=== PATIENT | female | born 1955 | race American Indian/Alaskan Native ===

== ENCOUNTER 2019-05-03 10:36 | Outpatient (CLI) | payer OTHER ==
--- NOTE | 2019-05-03 15:53 | Mammography Report ---
DIGITAL SCREENING MAMMOGRAM WITH CAD, 05/03/2019 INDICATION: Routine screening mammography. TECHNIQUE: Digital bilateral 2D mammography was obtained in the craniocaudal and mediolateral obliq ue projections. This examination was interpreted with the benefit of Computer-Aided Detection analysi s. COMPARISON: None available at the time of dictation. FINDINGS: Breast Density: The breasts are heterogeneously dense, which may obscure small masses. A school bus monitor device is present in the upper inner quadrant of the left breast. There is a cluster of calcifications in the right breast at 12:00. There is left subareolar nodularit y. Although these findings are more than likely benign, comparison with outside prior mammogram would be helpful in determining whether further evaluation is warranted. We will be requesting prior mammo grams and will issue an addendum once outside mammograms have been obtained and reviewed. IMPRESSION: Right breast calcifications and left breast nodularity are present. Findings will more th an likely be benign but will need comparison with outside prior mammograms. An addendum will be issue d once outside mammograms have been obtained and reviewed. BI-RADS Category 0: Incomplete. Needs additional imaging evaluation and/or prior mammograms for miguel angel rison. A "normal" or negative report should not discourage follow up or biopsy of a clinically significant f inding. A written summary of these findings will be mailed to the patient. The patient will be entered into a mammography reporting system which will generate a reminder letter for the patient's next appointmen t at the appropriate interval. The [employer] recommends yearly mammograms starting at age 40 and continuing as l [place] as a woman is in good health. Breast MRI is recommended for women with an approximate 20-25% or greater lifetime risk of breast cancer, including women with a strong family history of breast or ova jamshid cancer or who have been treated for Hodgkin's disease. Signer Name: Malinda Villatoro MD Signed: 05/03/2019 3:48 PM Workstation Name: [id number]
== END 2019-05-03 10:37 | disposition home or self-care (01) ==
LOC: SPVWC 10:36
PROVIDERS: ATTEND Family Medicine
DX: Z12.31 Encounter for screening mammogram for malignant neoplasm of breast (principal)
CPT/HCPCS: 77067

== ENCOUNTER 2020-05-23 14:04 | Outpatient (CLI) | payer OTHER ==
--- NOTE | 2020-05-24 08:57 | Mammography Report ---
DIGITAL SCREENING MAMMOGRAM WITH CAD, 05/23/2020 INDICATION: Routine screening mammography. SCREENING MAMMOGRAM TECHNIQUE: Digital bilateral 2D mammography was obtained in the craniocaudal and mediolateral obliq ue projections. This examination was interpreted with the benefit of Computer-Aided Detection analysi s. COMPARISON: 05/03/2019 FINDINGS: Breast Density: There are scattered areas of fibroglandular density. There is no evidence of dominant mass, suspicious calcifications or architectural distortion in eithe r breast. Leadless subcutaneous cardiac device again noted on the left. A few scattered calcification s are largely unchanged. IMPRESSION: Follow up recommendation: Routine yearly BI-RADS Category 2: Benign. A "normal" or negative report should not discourage follow up or biopsy of a clinically significant f inding. A written summary of these findings will be mailed to the patient. The patient will be entered into a mammography reporting system which will generate a reminder letter for the patient's next appointmen t at the appropriate interval. The [employer] recommends yearly mammograms starting at age 40 and continuing as l bal[place] as a woman is in good health. Breast MRI is recommended for women with an approximate 20-25% or greater lifetime risk of breast cancer, including women with a strong family history of breast or ova jamshid cancer or who have been treated for Hodgkin's disease. Signer Name: Gm Hartmann MD Signed: 05/24/2020 8:53 AM Workstation Name: [id number]
== END 2020-05-23 14:05 | disposition home or self-care (01) ==
LOC: SPVWC 14:04
PROVIDERS: ATTEND Family Medicine
DX: Z12.31 Encounter for screening mammogram for malignant neoplasm of breast (principal)
CPT/HCPCS: 77067